=== PATIENT | male | born 1950 | race African-American/Black ===

== ENCOUNTER 2016-08-06 10:39 | Emergency (ER) | payer MEDICARE ==
[~2016-08-06] VITALS: Ht 180.3 cm; Wt 98.1 kg
[2016-08-06 10:41] VITALS: BP 114/62
[2016-08-06] MEDS ORDERED: LIDOCAINE 1%, 20ML ONE (11:27)
[2016-08-06] MEDS ORDERED: LIDOCAINE 1%, 10ML INFIL ONE (11:30)
== END 2016-08-06 12:13 | disposition home or self-care (01) ==
LOC: ED 12:00
DX: H66.42 Suppurative otitis media, unspecified, left ear (principal); I10 Essential (primary) hypertension; K21.9 Gastro-esophageal reflux disease without esophagitis
CPT/HCPCS: 10060; 99283; J3490

== ENCOUNTER → 2017-09-24 | Outpatient (CLI) | payer MEDICARE, OTHER | END | disposition home or self-care (01) | LOC: CFH 13:34 | PROVIDERS: ATTEND Internal Medicine Critical Care Medicine | DX: J43.2 Centrilobular emphysema (principal); J84.10 Pulmonary fibrosis, unspecified; I25.10 Atherosclerotic heart disease of native coronary artery without angina pectoris; I10 Essential (primary) hypertension; E78.5 Hyperlipidemia, unspecified; K21.9 Gastro-esophageal reflux disease without esophagitis; Z87.891 Personal history of nicotine dependence | CPT/HCPCS: 71250 ==